=== PATIENT | male | born 1980 | race Caucasian/White ===

== ENCOUNTER 2017-10-18 19:16 | Emergency (ER) | payer MEDICAID ==
[~2017-10-18] VITALS: Ht 180.3 cm; Wt 87.3 kg
[~2017-10-18 19:16] MED LIST: NOCURR
[2017-10-18 23:20] VITALS: BP 136/81
== END 2017-10-18 23:24 | disposition home or self-care (01) ==
LOC: EMS 19:17
DX: S83.92XA Sprain of unspecified site of left knee, initial encounter (principal); X50.1XXA Overexertion from prolonged static or awkward postures, initial encounter; Y93.89 Activity, other specified; Y92.89 Other specified places as the place of occurrence of the external cause; Y99.8 Other external cause status
CPT/HCPCS: 29530; 99284